=== PATIENT | female | born 1970 | race African-American/Black ===

== ENCOUNTER 2020-11-02 15:35 | Inpatient (IN) ==
[2020-11-02 19:49] LABS: Basophils % 0.3 % (0.0-0.8); Eosinophils # 0.4 10*3/uL (0.0-0.87); Eosinophils % 3.7 % (0.00-10.9); Hematocrit 43.3 VOL% (35.7-47.0); Immature Granulocytes % 0.1 %; Immature Granulocytes Absolute 0.01 #; Lymphocytes # 5.2 10*3/uL (1.4-4.0); Lymphocytes % 53.6 % (21.3-54.2); Mean Corpuscular Volume 79.4 FL (87-102); Mean Platelet Volume 9.3 FL (9.6-12.0); Monocytes % 6.3 % (1.7-12.7); Platelet Count 372 T/CUMM (130-400); Red Blood Count 5.45 MC/CUMM (3.8-5.5); Red Cell Distribution Width 15.9 % (9.3-17.3); White Blood Count 9.7 T/CUMM (4-12)
[2020-11-02 20:07] LABS: Albumin 3.8 G/DL (3.4-5.0); Bilirubin,Total 0.5 MG/DL (0.2-1.0); Calcium 8.9 MG/DL (8.5-10.1); Osmolality,Calculated 273.8 MOS/KG (273-304); Total Protein 7.1 G/DL (6.4-8.3)
[2020-11-02 20:15] LABS: Eosinophils 2 % (0-10); Lymphocytes 53 % (20-55); Segmented Neutrophils 37 % (50-85); Total Cells Counted 100
[2020-11-02] MEDS ORDERED: PIPERACILLIN/TAZOBACTAM 3,375 MG in SODIUM CHLORIDE 0.9% 100 ML IV STA (20:56)
[2020-11-02] MEDS: SODIUM CHLORIDE 0.9% 1,000 ML IV SCH (22:25)
[2020-11-02] MEDS ORDERED: ACETAMINOPHEN 325 MG TABLET PO PRN (22:45)
[2020-11-02] MEDS ORDERED: ONDANSETRON 4 MG/2 ML VIAL IV PRN (22:45)
[2020-11-02] MEDS ORDERED: HYDROmorphone 2 MG/1 ML VIAL IM PRN (23:54)
[2020-11-03] MEDS: HYDROmorphone 2 MG/1 ML VIAL IV PRN ×3 (00:25→20:05)
[2020-11-03] MEDS ORDERED: ALBUTEROL 2.5 MG/3 ML NEB RESP TX PRN (01:08)
[2020-11-03] MEDS ORDERED: ONDANSETRON ODT 4 MG TABLET PO PRN (01:08)
[2020-11-03] MEDS ORDERED: CYCLOBENZAPRINE 10 MG TABLET PO PRN (01:08)
[2020-11-03] MEDS ORDERED: METHOCARBAMOL 500 MG TABLET PO PRN (01:08)
[2020-11-03] MEDS: PIPERACILLIN/TAZOBACTAM 3,375 MG in SODIUM CHLORIDE 0.9% 100 ML IV SCH ×2 (05:28→14:33)
[2020-11-03 07:14] LABS: Basophils % 0.3 % (0.0-0.8); Eosinophils # 0.3 10*3/uL (0.0-0.87); Eosinophils % 3.9 % (0.00-10.9); Hematocrit 40.3 VOL% (35.7-47.0); Hemoglobin 12.7 GM/DL (12.0-16.0); Immature Granulocytes % 0.1 %; Immature Granulocytes Absolute 0.01 #; Lymphocytes % 55.5 % (21.3-54.2); Mean Corpuscular HGB Conc 31.5 GM/DL (32-36); Mean Corpuscular Volume 77.6 FL (87-102); Mean Platelet Volume 9.7 FL (9.6-12.0); Monocytes % 6.8 % (1.7-12.7); Neutrophils % 33.4 % (38.7-73.9); Platelet Count 333 T/CUMM (130-400); Red Blood Count 5.19 MC/CUMM (3.8-5.5); Red Cell Distribution Width 15.9 % (9.3-17.3); White Blood Count 7.2 T/CUMM (4-12)
[2020-11-03 07:39] LABS: Eosinophils 7 % (0-10); Hypochromasia 1+; Lymphocytes 40 % (20-55); Microcytosis 1+; Platelet Estimate Adequate; Segmented Neutrophils 43 % (50-85); Total Cells Counted 100
[2020-11-03 07:40] LABS: Atypical Lymphocytes Few
[2020-11-03 07:45] LABS: Albumin 3.7 G/DL (3.4-5.0); Bilirubin,Total 0.8 MG/DL (0.2-1.0); Calcium 9.1 MG/DL (8.5-10.1); Osmolality,Calculated 271.8 MOS/KG (273-304); Total Protein 7.4 G/DL (6.4-8.3)
[2020-11-03] MEDS: lisinopriL 20 MG TABLET PO SCH (08:38)
[2020-11-03] MEDS: MELOXICAM 7.5 MG TABLET PO SCH (08:38)
[2020-11-03] MEDS: amLODIPine 10 MG TABLET PO SCH (08:38)
[2020-11-03] MEDS: TAMSULOSIN 0.4 MG CAPSULE PO SCH (08:38)
[2020-11-03] MEDS: predniSONE 20 MG TABLET PO SCH (08:38)
[2020-11-03] MEDS: hydroCHLOROthiazide 25 MG TABLET PO SCH (08:38)
[2020-11-03] MEDS: POTASSIUM CHLORIDE 8 MEQ CAPSULE PO SCH ×2 (08:38→21:10)
[2020-11-03] MEDS: PANTOPRAZOLE 40 MG VIAL IV SCH (08:38)
[2020-11-03] MEDS: MONTELUKAST 10 MG TABLET PO SCH (08:39)
[2020-11-03] MEDS: ENOXAPARIN 40 MG/0.4 ML SYRINGE SUBCUT SCH (10:42)
[2020-11-03] MEDS: POTASSIUM CHLORIDE RIDER 10 MEQ in PREMIX 1 EACH IV PRN ×4 (10:43→22:58)
[2020-11-03] MEDS: NON-FORMULARY MEDICATION (Fluticasone Furoate-Vilanterol [Breo Ellipta] 100-25 mcg/dose Bl INH SCH (14:05)
[2020-11-03] MEDS: SODIUM CHLORIDE 0.9% 1,000 ML IV SCH (17:52)
[2020-11-04] MEDS: HYDROmorphone 2 MG/1 ML VIAL IV PRN ×5 (00:04→23:18)
[2020-11-04] MEDS: PIPERACILLIN/TAZOBACTAM 3,375 MG in SODIUM CHLORIDE 0.9% 100 ML IV SCH ×2 (00:06→06:59)
[2020-11-04] MEDS: SODIUM CHLORIDE 0.9% 1,000 ML IV SCH ×3 (00:41→16:58)
[2020-11-04 02:48] LABS: Basophils % 0.1 % (0.0-0.8); Eosinophils # 0.1 10*3/uL (0.0-0.87); Eosinophils % 1.9 % (0.00-10.9); Hematocrit 37.4 VOL% (35.7-47.0); Hemoglobin 11.8 GM/DL (12.0-16.0); Immature Granulocytes % 0.3 %; Immature Granulocytes Absolute 0.02 #; Lymphocytes # 2.8 10*3/uL (1.4-4.0); Lymphocytes % 41.1 % (21.3-54.2); Mean Corpuscular HGB Conc 31.6 GM/DL (32-36); Mean Corpuscular Volume 78.2 FL (87-102); Mean Platelet Volume 9.4 FL (9.6-12.0); Monocytes % 8.6 % (1.7-12.7); Platelet Count 316 T/CUMM (130-400); Red Blood Count 4.78 MC/CUMM (3.8-5.5); Red Cell Distribution Width 15.9 % (9.3-17.3); White Blood Count 6.9 T/CUMM (4-12)
[2020-11-04 03:09] LABS: Calcium 8.8 MG/DL (8.5-10.1); Osmolality,Calculated 271.8 MOS/KG (273-304)
[2020-11-04] MEDS: POTASSIUM CHLORIDE RIDER 10 MEQ in PREMIX 1 EACH IV PRN ×2 (03:49→05:19)
[2020-11-04] MEDS: TAMSULOSIN 0.4 MG CAPSULE PO SCH (08:25)
[2020-11-04] MEDS: predniSONE 20 MG TABLET PO SCH (08:25)
[2020-11-04] MEDS: MONTELUKAST 10 MG TABLET PO SCH (08:25)
[2020-11-04] MEDS: POTASSIUM CHLORIDE 8 MEQ CAPSULE PO SCH ×2 (08:25→20:37)
[2020-11-04] MEDS: amLODIPine 10 MG TABLET PO SCH (08:25)
[2020-11-04] MEDS: hydroCHLOROthiazide 25 MG TABLET PO SCH (08:26)
[2020-11-04] MEDS: lisinopriL 20 MG TABLET PO SCH (08:26)
[2020-11-04] MEDS: MELOXICAM 7.5 MG TABLET PO SCH (08:26)
[2020-11-04] MEDS: ENOXAPARIN 40 MG/0.4 ML SYRINGE SUBCUT SCH (08:27)
[2020-11-04] MEDS: NON-FORMULARY MEDICATION (Fluticasone Furoate-Vilanterol [Breo Ellipta] 100-25 mcg/dose Bl INH SCH (09:13)
[2020-11-04] MEDS: PANTOPRAZOLE 40 MG VIAL IV SCH (09:18)
[2020-11-04] MEDS: HYDROmorphone 2 MG TABLET PO PRN (15:05)
[2020-11-04] MEDS: AMOXICILLIN/CLAV 875 MG TABLET PO SCH (17:13)
[2020-11-05] MEDS: HYDROmorphone 2 MG/1 ML VIAL IV PRN (07:09)
[2020-11-05] MEDS: SODIUM CHLORIDE 0.9% 1,000 ML IV SCH ×3 (07:47→16:00)
[2020-11-05] MEDS: MELOXICAM 7.5 MG TABLET PO SCH (09:13)
[2020-11-05] MEDS: AMOXICILLIN/CLAV 875 MG TABLET PO SCH ×2 (09:13→16:26)
[2020-11-05] MEDS: amLODIPine 10 MG TABLET PO SCH (09:13)
[2020-11-05] MEDS: MONTELUKAST 10 MG TABLET PO SCH (09:13)
[2020-11-05] MEDS: ENOXAPARIN 40 MG/0.4 ML SYRINGE SUBCUT SCH (09:14)
[2020-11-05] MEDS: predniSONE 20 MG TABLET PO SCH (09:14)
[2020-11-05] MEDS: TAMSULOSIN 0.4 MG CAPSULE PO SCH (09:14)
[2020-11-05] MEDS: POTASSIUM CHLORIDE 8 MEQ CAPSULE PO SCH ×2 (09:14→21:07)
[2020-11-05] MEDS: lisinopriL 20 MG TABLET PO SCH (09:14)
[2020-11-05] MEDS: hydroCHLOROthiazide 25 MG TABLET PO SCH (09:14)
[2020-11-05] MEDS: PANTOPRAZOLE 40 MG VIAL IV SCH (09:19)
[2020-11-05] MEDS: NON-FORMULARY MEDICATION (Fluticasone Furoate-Vilanterol [Breo Ellipta] 100-25 mcg/dose Bl INH SCH (10:03)
[2020-11-05] MEDS: HYDROmorphone 2 MG TABLET PO PRN ×2 (11:57→18:05)
[2020-11-06] MEDS: SODIUM CHLORIDE 0.9% 1,000 ML IV SCH ×2 (00:05→08:02)
[2020-11-06] MEDS: HYDROmorphone 2 MG TABLET PO PRN ×2 (00:10→10:03)
[2020-11-06 08:10] VITALS: BP 158/86
[2020-11-06] MEDS: POTASSIUM CHLORIDE 8 MEQ CAPSULE PO SCH (10:01)
[2020-11-06] MEDS: MONTELUKAST 10 MG TABLET PO SCH (10:02)
[2020-11-06] MEDS: TAMSULOSIN 0.4 MG CAPSULE PO SCH (10:02)
[2020-11-06] MEDS: hydroCHLOROthiazide 25 MG TABLET PO SCH (10:02)
[2020-11-06] MEDS: predniSONE 20 MG TABLET PO SCH (10:02)
[2020-11-06] MEDS: AMOXICILLIN/CLAV 875 MG TABLET PO SCH (10:02)
[2020-11-06] MEDS: MELOXICAM 7.5 MG TABLET PO SCH (10:03)
[2020-11-06] MEDS: lisinopriL 20 MG TABLET PO SCH (10:03)
[2020-11-06] MEDS: ENOXAPARIN 40 MG/0.4 ML SYRINGE SUBCUT SCH (10:04)
[2020-11-06] MEDS: amLODIPine 10 MG TABLET PO SCH (10:04)
[2020-11-06] MEDS: PANTOPRAZOLE 40 MG VIAL IV SCH (11:05)
[2020-11-06] MEDS: NON-FORMULARY MEDICATION (Fluticasone Furoate-Vilanterol [Breo Ellipta] 100-25 mcg/dose Bl INH SCH (11:05)
== END 2020-11-06 12:05 | disposition home or self-care (01) | DRG 394 ==
LOC: N.ED 15:35 → N.EDINP 15:35 → N.3E 22:22
PROVIDERS: ADMIT Surgery; ATTEND Surgery